=== PATIENT | female | born 1980 | race Caucasian/White ===

== ENCOUNTER → 2016-09-18 | Outpatient (REF) | payer OTHER | LOC: M SFHCLERA 19:01 | PROVIDERS: ATTEND Nurse Practitioner Family | DX: R53.81 Other malaise (principal) ==

== ENCOUNTER 2024-01-12 09:12 | Emergency (ER) | payer BC, OTHER, SELFPAY ==
[~2024-01-12] VITALS: Ht 157.5 cm; Wt 78.5 kg
[2024-01-12] MEDS: BACITRACIN OINTMENT 30GM TUBE TOP PRN (13:04)
[2024-01-12 13:16] VITALS: BP 131/84; TEMP 97.7; O2SAT 97
== END 2024-01-12 13:32 | disposition home or self-care (01) ==
LOC: M ED 09:12
DX: T21.22XA Burn of second degree of abdominal wall, initial encounter (principal); T21.12XA Burn of first degree of abdominal wall, initial encounter; T25.121A Burn of first degree of right foot, initial encounter; T31.0 Burns involving less than 10% of body surface; X32.XXXA Exposure to sunlight, initial encounter; Y92.9 Unspecified place or not applicable; Y93.89 Activity, other specified; Y99.9 Unspecified external cause status

== ENCOUNTER 2024-08-04 14:53 | Emergency (ER) | payer BC, SELFPAY ==
[~2024-08-04] VITALS: Ht 157.5 cm; Wt 77.5 kg
[2024-08-04] MEDS ORDERED: ROSU20TA86 (15:07)
[2024-08-04] MEDS ORDERED: SERTRALINE (15:07)
[2024-08-04] MEDS ORDERED: BUPR-71 (15:07)
[2024-08-04] MEDS ORDERED: SUMA50TA2 (15:07)
[2024-08-04 17:06] VITALS: BP 145/78; TEMP 97.9; O2SAT 92
== END 2024-08-04 17:08 | disposition home or self-care (01) ==
LOC: M ED 14:53
DX: F43.29 Adjustment disorder with other symptoms (principal); F32.A Depression, unspecified; E78.5 Hyperlipidemia, unspecified; G43.909 Migraine, unspecified, not intractable, without status migrainosus; F10.10 Alcohol abuse, uncomplicated; Z88.8 Allergy status to other drugs, medicaments and biological substances; Z79.899 Other long term (current) drug therapy

== ENCOUNTER 2025-01-11 13:15 | Emergency (ER) | payer BC, OTHER, SELFPAY ==
[~2025-01-11] VITALS: Ht 157.5 cm; Wt 79.6 kg
[~2025-01-11 13:15] MED LIST: BUPR-71; ROSU20TA86; SERTRALINE; SUMA50TA2
[2025-01-11 13:22] VITALS: BP 146/85; TEMP 97.6; O2SAT 97
== END 2025-01-11 14:33 | disposition home or self-care (01) ==
LOC: M ED 13:15
DX: H57.12 Ocular pain, left eye (principal); Z86.69 Personal history of other diseases of the nervous system and sense organs; Z91.048 Other nonmedicinal substance allergy status; Z91.040 Latex allergy status; Z88.8 Allergy status to other drugs, medicaments and biological substances; Z79.899 Other long term (current) drug therapy

== ENCOUNTER 2025-05-17 12:34 | Emergency (ER) | payer OTHER, BC ==
[~2025-05-17] VITALS: Ht 157.5 cm; Wt 83.9 kg
[2025-05-17 12:59] VITALS: BP 130/84; TEMP 97.4; O2SAT 96
== END 2025-05-17 15:22 | disposition home or self-care (01) ==
LOC: M ED 12:34
DX: S06.0X0A Concussion without loss of consciousness, initial encounter (principal); R51.9 Headache, unspecified; V40.5XXA Car driver injured in collision with pedestrian or animal in traffic accident, initial encounter; E78.5 Hyperlipidemia, unspecified; F41.9 Anxiety disorder, unspecified; F32.A Depression, unspecified; Y92.410 Unspecified street and highway as the place of occurrence of the external cause; Y93.89 Activity, other specified; Y99.9 Unspecified external cause status; Z91.040 Latex allergy status; Z91.09 Other allergy status, other than to drugs and biological substances; Z79.899 Other long term (current) drug therapy